=== PATIENT | female | born 1970 | race Caucasian/White ===

== ENCOUNTER 2020-05-08 16:52 | Outpatient (REF) | payer OTHER, SELFPAY | END 2020-05-08 16:53 | disposition home or self-care (01) | LOC: HO.LNP 16:52 | PROVIDERS: Visit Provider Hospitalist | DX: Z20.822 Contact with and (suspected) exposure to COVID-19 (principal); J01.90 Acute sinusitis, unspecified | CPT/HCPCS: U0003; U0005 ==

== ENCOUNTER 2022-11-27 11:07 | Emergency (ER) | payer OTHER, SELFPAY ==
[2022-11-27 11:32] VITALS: BP 159/95; PULSE 87; RESP 18; TEMP 36.6; O2SAT 98; BMI 35.5
--- NOTE | 2022-11-27 11:33 | ED_ITS ---
HPI - General Adult General Chief complaint: Upper Respiratory Symptoms Stated complaint: COVID+/Pinky numbness/body aches Time Seen by Provider: 11/27/22 12:05 Source: patient Mode of arrival: ambulatory Limitations: no limitations History of Present Illness HPI narrative: 52-year-old female with no medical history presents to the ER for evaluation of transient tingling and discoloration of her left pinky finger that occurred today when she was at work. She reports it came on when she was counting money. She had no pain but sensation the finger was sleep and her pinky was white. It lasted about 45 minutes and self resolved. She reports it occurred again later and she has some ongoing tingling in the pinky but color is back to normal. She denies any weakness. She reports history of numbness and tingling in her fingers and hands intermittently at night. No neck pain or injury. She also reports today she had some pain and numbness in her left foot as well. No weakness in the leg, speech difficulties. She was just diagnosed with COVID earlier this week. Symptoms have been mild. She reports bilateral eye burning and some redness to the left lower eye lid. She has had blurred vision worse than usual since her COVID diagnosis. No discharge from the eyes. She does not have an eye doctor. MD complaint: left pinky discoloration and numbness, left foot numbness, blurred vision Onset (ago): hour(s) Location: eyes, left, upper extremity and lower extremity Radiation: non-radiation Severity: moderate Quality: burning Pain Consistency: intermittent Relieving factors: none Exacerbating factors: none Associated symptoms: cough and malaise Treatments prior to arrival: none Related Data Previous Rx's Medication Instructions Recorded amoxicillin 875 mg-potassium 1 tab PO BID #20 tabs 05/08/20 clavulanate 125 mg tablet (Augmentin) prednisone 20 mg tablet 20 mg PO .COMPLEX #18 tabs 05/08/20 erythromycin 5 mg/gram (0.5 %) eye 0.5 inch ophthalmic (eye) TID #3.5 11/27/22 ointment grams Allergies Allergy/AdvReac Type Severity Reaction Status Date / Time No Known Allergies Allergy Verified 05/08/20 12:41 Review of Systems 2 Review of Systems: Yes all other systems are reviewed and are negative [facility] Social History Social History Advance Directives: No Physical Exam ED Vital Signs: Vital Signs - 24 hr 11/27/22 11:32 Temperature 97.8 F Pulse Rate 87 Respiratory Rate 18 Blood Pressure 159/95 H Pulse Oximetry 98 Oxygen Delivery Method Room Air BMI result Body Mass Index 35.5 Appearance: Alert. Oriented X3. No acute distress. Head: normocephalic, atraumatic. Eyes: Pupils equal, round and reactive to light. Left lower eyelid with erythema, visible pustule internally on the conjunctiva. bilateral scleral injection, mild. ENT: Pharynx normal. No tonsillar swelling or exudate. Neck: Normal inspection. Neck supple. CVS: Normal heart rate and rhythm. Pulses normal. Respiratory: No respiratory distress. Breath sounds normal. Skin: Skin warm and dry. Normal skin color. Normal skin turgor. No rashes. Extremities: No lower extremity edema. No joint swelling. Normal inspection of bilateral hands, no discoloration. Neuro/psych: Oriented X 3. No motor deficit. No sensory deficit. CN II-XII intact. Normal speech and cognition. Strength is equal and symmetrical throughout. Steady gait Course Course Course Narrative: This is an RME: Additional HPI, ROS, PE not included below will be deferred to primary provider. This is a [id number]-female, with no known medical problems, presenting to the emergency department with multiple complaints. Patient tested positive for COVID on Friday morning. She states that Friday she had a fever. Now having numbness and tingling down to her left pinky. She admits to having some mild discomfort in her chest. Her the reporting numbness and tingling down her left leg. She has had ongoing upper back pain for several months may attribute this to waking. She has been taking ibuprofen for symptoms which has provided some relief. Patient is nontoxic appearing, blood pressure mildly elevated 159/95, all other vital signs within normal limits. Patient afebrile. Plan: Labs, EKG, chest x-ray Medications Administered Discontinued Medications Generic Name Dose Route Start Last Admin Trade Name Freq PRN Reason Stop Dose Admin Fluorescein Sodium 1 strip 11/27/22 13:04 11/27/22 13:08 Fluorescein Sodium Strip EYE-BOTH 11/27/22 13:05 1 strip ONCE ONE Administration Tetracaine HCl 1 drop 10/11/23 13:04 11/27/22 13:08 Tetracaine Hcl/Pf 0.5% Oph Felisa 4 Ml Drops EYE-BOTH 11/27/22 13:05 1 drop ONCE ONE Administration Medical Decision Making Medical Decision Making [facility] Narrative: With recently diagnosed COVID-19 presents to the ER for evaluation discoloration and paresthesias of the left pinky as well as the left foot that started today. She also stool reporting eye pressure and discomfort when she touches her eyes. She has acute on chronic blurry vision. Her neuro exam is nonfocal, NIH is 0. Her vital signs are stable. Fluoroscene exam and IOP normal. She has a stye on the left lower lid. She reports intermittent hand/finger numbness chronically, question cervical radiculopathy. The left foot tingling is new with no strength or sensation deficits on examination. gait is normal. considered CT head/CTA head/neck but low clinical suspicion for LVO or acute CVA at this time. Her lab workup today was unremakable. TSH normal. At this time comfortable w/ discharge home with close outpatient follow up, instructed to come back to the ER if symptoms worsen. She expressed understanding. Stable for d/c home. Differential Diagnosis Differential Diagnoses: The differential diagnosis associated with the presentation includes raymaud's phenomenon, paresthesias, cervical radiculopathy, lumbar radiculopathy, metabolic derrangement, vitamin deficiency, less likely TIA or CVA Admission/Observation Consideration of admission/observation: Escalation of care including admission/observation considered Lab Data [facility] Lab Attestation statement: I reviewed the patient's lab results. normal CBC, no metabolic derrangement 11/27/22 11:58 11/27/22 11:58 Labs: Lab Results 11/27/22 Range/Units 11:58 WBC 7.2 (4.8-10.8) X10*3/uL RBC 5.05 (4.20-5.50) X10*6/uL Hgb 15.6 (12.0-16.0) g/dl Hct 45.6 (37.0-47.0) % MCV 90.3 (80.0-98.0) fL MCH 30.9 (27.0-33.0) pg MCHC 34.2 (31.0-35.0) g/dl RDW 11.9 (11.0-16.0) % Plt Count 210 (160-400) X10*3/uL MPV 9.9 (9.4-12.3) fL Immature Gran % (Auto) 0.1 (0.0-0.4) % Neut % (Auto) 73.0 (45-73) % Lymph % (Auto) 19.5 L (20-40) % [place] % (Auto) 6.7 (2-11) % Eos % (Auto) 0.4 (0-4) % Baso % (Auto) 0.3 (0-2) % Lymph # (Auto) 1.4 (1.2-4.9) X10*3/uL [place] # (Auto) 0.5 (0.1-1.2) X10*3/uL Eos # (Auto) 0.0 (0.0-0.4) X10*3/uL Baso # (Auto) 0.0 (0.0-0.2) X10*3/uL Abs Immat Gran (auto) 0.01 (0.00-0.03) X10*3/uL Absolute Neuts (auto) 5.3 (2.0-8.3) x10*3/uL Absolute Nucleated RBC 0.000 (0.0-0.012) X10*3/uL Nucleated RBC % (auto) 0.0 (0.0-0.2) /100WBC Sodium 142 (135-145) mmol/L Potassium 4.5 (3.3-5.1) mmol/L Chloride 106 (96-108) mmol/L Carbon Dioxide 22 (22-29) mmol/L Anion Gap 19 (12-20) BUN 12 (9-16) mg/dL Creatinine 0.72 (0.5-1.4) mg/dL Estim Creat Clear Calc 110.2 Estimated GFR > 60 Random Glucose 91 (60-115) mg/dL Calcium 9.8 (8.4-10.2) mg/dL Total Bilirubin 0.3 (0.0-1.0) mg/dL Direct Bilirubin 0.1 (0.0-0.5) mg/dL AST 21 (5-31) U/L ALT 23 (0-31) U/L Alkaline Phosphatase 70 (39-117) U/L Troponin I High Sens < 2.7 (<3.5-17.0) ng/L Total Protein 7.6 (6.5-8.0) g/dL Albumin 4.3 (3.5-5.0) g/dL Independent Interpretation I performed an independent interpretation of an: EKG Interpretation: EKG with normal sinus rhythm, ventricular rate 79 beats per minute, normal PA interval, normal QTC, no ST segment elevations or depressions. External Record Review External record reviewed: Office record Tests considered The following testing was considered but not selected: considered CT head or MRI, NIH 0, nonfocal neuro exam Prescription Management I considered prescription management with: Antiviral and Antibiotic Critical Care Time Critical Care Time Critical Care Time: No Discharge Plan Discharge Clinical Impression: Internal hordeolum of left eye, COVID-19, Paresthesias Patient Disposition: Home, Self-Care Instructions: Covid-19 Viral Syndrome and Novel Coronavirus (ED) Hey/Ath, Stye (ED), Paresthesia (ED) Additional Instructions: Your lab workup today was reassuring. Your examination was normal Use warm compresses to your left eye several times per day and use the antibiotic ointment x1 week Rest and drink plenty of fluids Recommend following up with Ophthalmology for further evaluation once you are recovered If you develop new or worsening symptoms call 911 or come back to the ER for further evaluation. Prescriptions: New erythromycin 5 mg/gram (0.5 %) ointment 0.5 inch ophthalmic (eye) TID Qty: 3.5 0RF No Action prednisone 20 mg tablet 20 mg PO .COMPLEX Qty: 18 0RF Rx Instructions: 20 mg PO 3 p.o. daily for 3 days followed by 2 p.o. daily for 3 days followed by 1 p.o. daily for 3 days; amoxicillin-pot clavulanate [Augmentin] 875-125 mg tablet 1 tab PO BID Qty: 20 0RF Referrals: Dilip Hamilton [Physician] - Adia Olvieros MD [Primary Care Provider] - Discharge Date/Time: 11/27/22 15:19
[2022-11-27 12:19] LABS: Alanine Aminotransferase 23 U/L (0-31); Albumin Level 4.3 g/dL (3.5-5.0); Alkaline Phosphatase 70 U/L (39-117); Anion Gap 19 (12-20); Aspartate Amino Transferase 21 U/L (5-31); Bilirubin Direct 0.1 mg/dL (0.0-0.5); Bilirubin Total 0.3 mg/dL (0.0-1.0); Blood Urea Nitrogen 12 mg/dL (9-16); Calcium 9.8 mg/dL (8.4-10.2); Carbon Dioxide 22 mmol/L (22-29); Chloride 106 mmol/L (96-108); Creatinine Clr Calc Pharmacy 110.2; Estimated Glomerular Filt Rate > 60; Glucose Random 91 mg/dL (60-115); Potassium 4.5 mmol/L (3.3-5.1); Sodium 142 mmol/L (135-145); Total Protein 7.6 g/dL (6.5-8.0)
--- NOTE | 2022-11-27 13:09 | PC.NURSE ---
tetracaine, bio gokul at bedside for provider admin
== END 2022-11-27 15:19 | disposition home or self-care (01) ==
PROVIDERS: Physician Assistant Medical; Emergency Provider Emergency Medicine Emergency Medical Services; PCP Internal Medicine
DX: U07.1 COVID-19 (principal); H00.025 Hordeolum internum left lower eyelid; H53.8 Other visual disturbances; R07.89 Other chest pain; M54.50 Low back pain, unspecified; M79.10 Myalgia, unspecified site; R05.9 Cough, unspecified; R20.0 Anesthesia of skin; Z79.899 Other long term (current) drug therapy
CPT/HCPCS: 36415; 80048; 80076; 84484; 85025; 93005; 99283

== ENCOUNTER 2025-01-27 07:57 | Outpatient (REF) | payer OTHER, SELFPAY ==
--- NOTE | ~2025-01-27 | XR_ITS ---
EXAMINATION: XR SACRUM AND COCCYX CLINICAL INFORMATION: M53.3 - Sacrococcygeal disorders, not elsewhere classified. 54-year-old female complaining of tailbone pain radiating down buttocks. COMPARISON: None available. TECHNIQUE: 2 views of the sacrum and 2 views of the coccyx were obtained. FINDINGS: There is S-shaped deformity of the most distal sacrum and coccyx, seen on the lateral projection, which could represent an age-indeterminate fracture. Unfortunately, radiographs of this region are of limited value due to extreme anatomic variability of the coccyx. The remainder of the sacrum appears intact. The SI joints demonstrate mild sclerosis on the iliac aspects bilaterally, without evidence of erosive arthropathy or significant degenerative arthropathy. This is likely secondary to previous childbirth. There are mild degenerative changes in the imaged lumbar spine. The soft tissues are normal in appearance. XR/XR sacrum coccyx min 2V IMPRESSION: 1. S-shaped deformity of the most distal sacrum and coccyx, possibly representing age-indeterminate fracture versus normal anatomical variation. 2. No additional abnormalities identified. Electronically signed by: Brennan Toledo MD 01/27/2025 09:46 AM [facility]
== END 2025-01-27 07:58 | disposition home or self-care (01) ==
LOC: HO.HMGCX 07:57
PROVIDERS: PCP Internal Medicine; Visit Provider Nurse Practitioner Family
DX: M53.3 Sacrococcygeal disorders, not elsewhere classified (principal); K59.00 Constipation, unspecified
CPT/HCPCS: 72220; 99212

== ENCOUNTER 2025-01-27 07:57 | Outpatient (AMB) | payer OTHER, SELFPAY ==
[2025-01-27 07:58] VITALS: BP 154/72; PULSE 58; O2SAT 98
--- NOTE | 2025-01-27 07:58 | AM.OFFWIN_ITS ---
Intake Vital Signs 01/27/25 07:58 Height 5 ft 6 in BP 154/72 H Blood Pressure Location Rt brachial Position Sitting Pulse 58 Pulse Source Pulse Oximeter Pulse Oximetry (%) 98 Oxygen Delivery Method Room Air Intake Visit Reasons: EP-coccyx Intake Note: Patient presents c/o coccyx pain that radiates into right buttock and right hip/groin x10 days. Patient unsure what happened. Patient Tobacco Use Status: Current everyday Tobacco user Allergies No Known Allergies Allergy (Verified 01/27/25 08:02) Medication List - Last Reconciled 01/27/25 by Ronel De Leon NP acetaminophen 1,000 mg (2 x 500 mg) PO Q6H bisacodyl (Dulcolax (bisacodyl)) 10 mg (2 x 5 mg) PO DAILY cyclobenzaprine 10 mg PO BEDTIME polyethylene glycol 3350 (Miralax) 17 grams PO BID tirzepatide (weight loss) (Zepbound) 5 mg subcut QWEEK Do you need a note to return to daycare/school/sports/work: No HPI HPI Comments History of Present Illness Details 54-year-old female presents to the walk- in clinic with tailbone (coccyx) pain x10 days. Describes the pain as sharp with intermittent spasms, radiating into the buttocks. Pain is aggravated by walking, bending, and sitting. Minimal relief with Ibuprofen 400?800 mg. Denies any known trauma or injury. Reports constipation and painful bowel movements since starting Zepbound ~2 weeks ago for weight loss. Denies numbness, tingling, saddle anesthesia, lower extremity weakness, urinary retention, or bowel incontinence. [facility] Medical History (Updated 01/27/25 @ 08:17 by Ronel De Leon NP) Constipation Coccydynia Social History Patient Tobacco Use Status: Current everyday Tobacco user Review of Systems Const All systems reviewed & are unremarkable except as noted in HPI and below Physical Exam Vital Signs: Last Vital Signs Pulse 58 01/27/25 07:58 BP 154/72 H 01/27/25 07:58 Pulse Ox 98 01/27/25 07:58 Oxygen Delivery Method Room Air 01/27/25 07:58 Const General: no acute distress Nutritional Appearance: obese Orientation/consciousness: patient oriented x3 GI Inspection: Yes distended and Yes obesity Palpation (GI): Soft to palpation, not firm, no guarding and not rigid Auscultation: normal bowel sounds Back/Spine/Pelvis Other: Back: No visible swelling or ecchymosis. Tenderness to palpation over coccyx. No lumbar spine tenderness. Neuro General: patient oriented x3, gait normal and moves all extremities Assessment & Plan Assessment & Plan (1) Coccydynia: Code(s): M53.3 - Sacrococcygeal disorders, not elsewhere classified Plan: Coccydynia ? likely secondary to prolonged pressure and/or constipation-related straining; no red-flag neurological symptoms. Constipation, medication-associated (likely due to Zepbound). Musculoskeletal pain/spasm contributing to discomfort. NSAIDs and Acetaminophen for pain relief. Ordered short course of muscle relaxant for spasms relief. Topical lidocaine or diclofenac gel for local pain relief. Use coccyx cushion or donut pillow when sitting. Warm compresses to area 20 min TID. Avoid prolonged sitting and hard surfaces. Gentle stretching. Increase fluid intake, fiber supplementation. Start Miralax daily until stool soft and regular. Ordered Dulcolax. Ordered Back/Pelvis Xray. (2) Constipation: Code(s): K59.00 - Constipation, unspecified Plan: Coccydynia ? likely secondary to prolonged pressure and/or constipation-related straining; no red-flag neurological symptoms. Constipation, medication-associated (likely due to Zepbound). Musculoskeletal pain/spasm contributing to discomfort. NSAIDs and Acetaminophen for pain relief. Ordered short course of muscle relaxant for spasms relief. Topical lidocaine or diclofenac gel for local pain relief. Use coccyx cushion or donut pillow when sitting. Warm compresses to area 20 min TID. Avoid prolonged sitting and hard surfaces. Gentle stretching. Increase fluid intake, fiber supplementation. Start Miralax daily until stool soft and regular. Ordered Dulcolax. Ordered Back/Pelvis Xray. Orders: Orders XR sacrum coccyx min 2V Today M53.3 - Sacrococcygeal disorders, not elsewhere classified Medications: New cyclobenzaprine 10 mg PO BEDTIME 14 tabs 0RF M53.3 - Sacrococcygeal disorders, not elsewhere classified polyethylene glycol 3350 (Miralax) 17 grams PO BID 238 grams 0RF K59.00 - Constipation, unspecified acetaminophen 1,000 mg (2 x 500 mg) PO Q6H 30 caps 0RF pain M53.3 - Sacrococcygeal disorders, not elsewhere classified bisacodyl (Dulcolax (bisacodyl)) 10 mg (2 x 5 mg) PO DAILY 20 tabs 0RF K59.00 - Constipation, unspecified Coding Level of Care Code Est Pt Level 4 (60343) Diagnoses Coccydynia M53.3 Constipation K59.00 Time Spent (min) 20
--- OUTSIDE RECORDS SUMMARY | 2025-01-27 08:05 | XMS_ITS | Encounter Summary ---
Author Organization [facility] Address [address] [place] [address] Care Team Providers Care Leather Finisher Name Role Phone Quentin Jansen MD Primary Care Provider [phone] Reason for Visit * Reason Onset Date Comments Weight Check 01/25/2025 231 lbs Encounter Details Date Type Department Care Team (Late st Contact Info) Description 01/25/2025 Telephone Bariatric Surgery - [address] [place] [address] Navya King PA [address] [place] [address] Social History Tobacco Use Types Packs/Day Years Used Date Smoking Tobacco: Every Day Cigarettes Smokeless Tobacco: Never Alcohol Use Standard Drinks/Week Comments Yes 0 (1 standard drink = 0.6 oz pur e alcohol) Housing Instability Answer Date Recorde d Are you worried that in the next 2 months you may not have stable housing? No 02/16/2024 Food Access & Nutrition Answer Date Rec orded Do you have access to a vari ety of food including fruits and vegetables? Yes 02/16/2024 Health Literacy Answer Date Recorded How often do you need to hav e someone help you when you read instructions, pamphlets, or other written material from your doctor or pharmacy? Never 02/16/2024 Caregiver: How often do you need to have someone help you when you read instructions, pamphlets, or other written material from your doctor or pharmacy? Not on file 02/16/2024 Financial Risk Answer Date Recorded How hard is it for you to pa y for the very basics like food, housing, medical care, and air conditioning / heating? Somewhat hard 02/16/2024 Transportation Answer Date Recorded Has the lack of transportati on kept you from meetings, work, or from getting things needed for daily living? No Has the lack of transportati on kept you from medical appointments or from getting medications? No 02/16/2024 Food Risk Answer Date Recorded Within the past 12 months we worried whether our food would run out before we got money to buy more. Never true 02/16/2024 Within the past 12 months th e food we bought just didn't last and we didn't have money to get more. Never true 02/16/2024 Dependent Care Answer Date Recorded Do you need help finding or paying for care for your loved ones. For example, attendant child activity or elderly care for an older adult? No 02/16/2024 Education Answer Date Recorded Do you think completing more education or training, like finishing a GED, going to college, or learning a trade, would be helpful for you? N/A 02/16/2024 Employment and Income Answer Date Recor ded During the last four weeks, have you been actively looking for work? No 02/16/2024 Living Situation Answer Date Recorded What is your living situation? Unrecognized valu e 02/16/2024 Comments Unknown Sex and Gender Information Value Date Recorded Sex Assigned at Not on file Legal Sex Female 3:03 AM EST Gender Identity Not on file Sexual Orientation Not on file documented as of this encounter Progress Notes * Anamaria Raymond - 01/25/2025 10:53 AM EST Weight check 231 lbs documented in this encounter Plan of Treatment Upcoming Encounters Date Type Department Care Team (Late st Contact Info) Description 02/09/2025 3:00 PM EST Office Visit Adult Medicine [address] [phone] Adia lOiveros MD [address] [place] [address] 04/12/2025 3:15 PM EST Office Visit Bariatric Surgery - [address] [phone] Navya King PA [address] [place] [address] documented as of this encounter Visit Diagnoses Not on filedocumented in this encounter Additional Health Concerns Assessment Noted Time PHQ-9 Depression Total Score: 1 02/16/20 24 7:57 PM EST documented as of this encounter Care Teams Leather Finisher Relationship Specialty Start Date End Date Quentin Jansen MD [address] [place] [address] Dr [address] [place], [place] PCP - General Internal Medicine 11/09/24 documented as of this encounter
--- OUTSIDE RECORDS SUMMARY | 2025-01-27 08:05 | XMS_ITS | Clinical Summary ---
Author Organization [facility] [address] [place] [address] [place] [address] [place] [address] Phone Care Team Providers Care Actuarial Science Professor Name Role Phone Quentin Jansen MD Primary Care Provider Allergies No known active allergies Medications tirzepatide, weight loss, (Zepbound) 5 mg/0.5 mL injection Inject 0.5 mL (5 mg total) under the skin every 7 (seven) days. 2 mL 12/27/2024 Active Problems Problem Noted Date Diagnosed Date Obesity, morbid 07/30/2024 Raynaud's phenomenon without gangrene 07/30/2024 HTN (hypertension) 01/06/2024 Overview (01/06/2024): Has not been on medications since 2013. Resolved with weight loss. Hyperlipidemia 01/06/2024 Uterine fibroid 11/18/2017 Overview (01/06/2024): S/p hysterectomy 11/2017 Obesity (BMI 30-39.9) 08/19/2017 Encounters Date Type Department Care Team Description 01/25/2025 Telephone Bariatric Surgery - [place] [address] [address] Navya King PA 12/27/2024 Telephone Bariatric Surgery [facility] [address] [address] Navya King PA 12/02/2024 Telephone Bariatric Surgery [facility] [address] [address] Navya King PA 11/09/2024 1:30 PM EDT Office Visit Bariatric Surgery - [address] [place] [address] Navya King PA Hypertension, unspecified type (Primary Dx); BMI 35.0-35.9,adult; Hyperlipidemia, unspecified hyperlipidemia type from Last 3 Months Immunizations Immunization Administration Dates Next Due Influenza trivalent, with pr eservative (Fluzone; Afluria) 6mo and older 01/17/2021 Tdap Tetanus diptheria acell ular pertussis (Boostrix; Adacel) 7yo and older 01/29/2012 Surgical History Surgery Date Site/Laterality Comments PARTIAL HYSTERECTOMY PROCEDURE: [place] SUPRACERVICAL ABDL HYSTER W/WO RMVL TUBE OVARY; COMMENT: abdominal 11/2017 with bilateral salpingectomy Medical History Medical History Date Comments HTN (hypertension) DX:HTN (hyper tension) Hyperlipidemia DX:Hyperlipidemi a Obesity (BMI 30-39.9) 08/19/2017 DX:Obesity (BMI 30-39.9) Tobacco use 08/19/2017 DX:Tobacco use Uterine fibroid 11/18/2017 DX:Uterine fibro id; COMMENT: S/p hysterectomy 11/2017 Family History Medical History Relation Name Comments Cataracts Father Hyperlipidemia Father Hypertension Father Heart attack Maternal Grandfather was in his 70s Stroke Maternal Grandmother in her late 60s Hyperlipidemia Mother Hypertension Mother Heart attack Paternal Grandfather was in his 60s Blindness Neg Hx Breast cancer Neg Hx Glaucoma Neg Hx Macular degeneration Neg Hx Ovarian cancer Neg Hx Strabismus Neg Hx Uterine cancer Neg Hx Relation Name Status Comments Brother Alive Father Alive Maternal Grandfather Maternal Grandmother Mother Alive Paternal Grandfather Paternal Grandmother Alive Social History Tobacco Use Types Packs/Day Years [...] care for your loved ones. For example, children's zoo caretaker or elderly care for an older adult? [...] on file Sexual Orientation Not on file Last Filed Vital Signs Vital Sign Reading Time Taken Comments Blood Pressure 150/82 11/09/2024 1:27 PM EDT Pulse 83 11/09/2024 1:27 PM EDT Temperature 36.4 C (97.6 F) 11/09/2024 1:27 PM EDT Respiratory Rate 16 07/30/2024 2:11 PM EDT Oxygen Saturation 97% 07/30/2024 2:11 PM EDT Inhaled Oxygen Concentration - - Weight 111 kg (245 lb) 11/09/2024 1:27 PM EDT Height 162.6 cm (5' 4 ) 11/09/2024 1:27 PM EDT Body Mass Index 42.05 11/09/2024 1:27 PM EDT Plan of Treatment Upcoming Encounters Date Type Department Care Team (Late st Contact Info) Description 02/09/2025 3:00 PM EST Office Visit Adult Medicine [facility] [address] [place] [address] Adia Oliveros MD [address] [place] [address] 04/12/2025 3:15 PM EST Office Visit Bariatric Surgery - [address] [place] [address] Navya King PA [address] [place] [address] Health Maintenance Due Date Last Done Comments Colorectal Cancer Screening: Colonoscopy 1971 Hepatitis B Vaccines (1 of 3 - 19+ 3-dose series) 08/24/1990 Pneumococcal Vaccine: 50+ Years (1 of 2 - PCV) 08/24/1990 Breast Cancer Screening 08/22/2019 08/21/2017 Cervical Cancer Screening: P ap Smear 09/30/2020 09/30/2017, 09/30/2017 RSV Immunization Adult Patients (1 - Risk 50-74 years 1-dose series) 08/24/2021 Zoster Vaccines (1 of 2) 08/24/2021 HIV Screening 01/20/2022 DTaP,Tdap,and Td Vaccines (2 - Td or Tdap) 01/28/2022 01/29/2012 Depression Screening 02/18/2024 02/16/2024 COVID-19 Vaccine (4 - 2024-2 6 season) 2024 01/17/2021, 06/10/2020, 05/19/2020 Influenza Vaccine (#1) 2024 01/17/2021 Social Influencers of Health Screening 02/15/2025 02/16/2024 Hypertension/CHF/CAD Annual BMP Blood Test 07/26/2025 07/26/2024, 07/16/2022 Cholesterol Screening (Lipid Panel) 07/26/2029 07/26/2024, 07/16/2022 Hepatitis C Screening Completed 07/16/2022 HIB Vaccines Aged Out No longer eligi ble based on patient's age to complete this topic HPV Vaccines Aged Out No longer eligi ble based on patient's age to complete this topic Hepatitis A Vaccines Aged Out No long er eligible based on patient's age to complete this topic IPV Vaccines Aged Out No longer eligi ble based on patient's age to complete this topic MMR Vaccines Aged Out No longer eligi ble based on patient's age to complete this topic Meningococcal ACWY Vaccine Aged Out N o longer eligible based on patient's age to complete this topic Meningococcal B Vaccine Aged Out No l onger eligible based on patient's age to complete this topic RSV Immunization Patients Under 20 months Aged Out No longer eligible b ased on patient's age to complete this topic Varicella Vaccines Aged Out No longer eligible based on patient's age to complete this topic Procedures Procedure Name Priority Date/Time Associated Diagnosis Comments COMPREHENSIVE METABOLIC PANEL Routine 07/26/2024 11:35 AM EDT Raynaud's phenomenon without gangrene LIPID PANEL WITH REFLEX TO DIRECT LDL Routine 07/26/2024 11:35 AM EDT Raynaud's phenomenon without gangrene HM HEPATITIS C SCREENING Routine 07/16/2022 PAP SMEAR Routine 09/30/2017 SCR MAMMO BI INCL CAD Routine 08/21/2017 1:38 PM EDT Encounter for screening mammogram for malignant neoplasm of breast from Last 3 Months or Most Recently Relevant to Health Maintenance Results * (ABNORMAL) Lipid panel with reflex to direct LDL (07/26/2024 11:35 AM EDT) Cholesterol 252(H) 0 - 200 mg/dL LAB CHEMISTRY METHOD 07/26/2024 5:21 PM EDT [facility] Triglycerides 177(H) 0 - 150 mg/dL LAB CHEMISTRY METHOD 07/26/2024 5:21 PM EDT [facility] HDL 56 >=40 mg/dL LAB CHEMISTRY METHOD 07/26/2024 5:21 PM EDT [facility] LDL Calculated 161(H) 0 - 100 mg/dL LAB CHEMISTRY METHOD 07/26/2024 5:21 PM EDT [facility] VLDL Cholesterol Agusto 35.4 mg/dL LAB CHEMISTRY METHOD 07/26/2024 5:21 PM T [facility] Non HDL Chol. (LDL+VLDL) 196(H) <145 mg/dL LAB CHEMISTRY METHOD 07/26/2024 5:21 PM [facility] Chol/HDL Ratio 4.5(H) 0.0 - 4.4 LAB CHEMISTRY METHOD 07/26/2024 5:21 PM T [facility] Blood Venous blood specimen / Unknown Venipuncture / Unknown 07/26/2024 11:35 AM EDT 07/26/2024 11:35 AM EDT us Adia Oliveros MD LAB BLOOD ORDERABLES Final Resul t [facility] [address] [place] [address], * Comprehensive metabolic panel (07/26/2024 11:35 AM EDT) Sodium 140 133 - 145 mmol/L LAB CHEMISTRY METHOD 07/26/2024 5:21 PM T [facility] Potassium 4.7 3.5 - 5.5 mmol/L LAB CHEMISTRY METHOD 07/26/2024 5:21 PM [facility] Chloride 108 96 - 110 mmol/L LAB CHEMISTRY METHOD 07/26/2024 5:21 PM [facility] CO2 27 21 - 32 mmol/L LAB CHEMISTRY METHOD 07/26/2024 5:21 PM [facility] Anion Gap 5 3 - 11 LAB CHEMISTRY METHOD 07/26/2024 5:21 PM [facility] Glucose 97 70 - 100 mg/dL LAB CHEMISTRY METHOD 07/26/2024 5:21 PM [facility] BUN 13 5 - 25 mg/dL LAB CHEMISTRY METHOD 07/26/2024 5:21 PM [facility] Creatinine 0.74 0.50 - 1.10 mg/dL LAB CHEMISTRY METHOD 07/26/2024 5:21 PM [facility] eGFR 97 >=60 mL/min/1. 73m2 LAB CHEMISTRY METHOD 07/26/2024 5:21 PM [facility] Comment:Calculation based on the Chronic Kidney Disease Epidemiology Collaboration (CKD-EPI) equation refit without adjustment for race. BUN/Creatinine Ratio 17.6 LAB CHEMISTRY METHOD 07/26/2024 5:21 PM [facility] Calcium 8.9 8.5 - 10.5 mg/dL LAB CHEMISTRY METHOD 07/26/2024 5:21 PM [facility] AST (SGOT) 19 10 - 42 unit/L LAB CHEMISTRY METHOD 07/26/2024 5:21 PM [facility] ALT (SGPT) 36 10 - 60 unit/L LAB CHEMISTRY METHOD 07/26/2024 5:21 PM [facility] Alkaline Phosphatase 90 42 - 121 unit/L LAB CHEMISTRY METHOD 07/26/2024 5:21 PM [facility] Total Protein 6.8 6.0 - 8.0 g/dL LAB CHEMISTRY METHOD 07/26/2024 5:21 PM [facility] Albumin 3.7 3.2 - 5.0 g/dL LAB CHEMISTRY METHOD 07/26/2024 5:21 PM EDT [facility] Total Bilirubin 0.6 0.0 - 1.4 mg/dL LAB CHEMISTRY METHOD 07/26/2024 5:21 PM EDT [facility] Blood Venous blood specimen / Unknown Venipuncture / Unknown 07/26/2024 11:35 AM EDT 07/26/2024 11:35 AM EDT Adia Oliveros MD LAB BLOOD ORDERABLES Final Resul t [facility] [address] [place] [address], [place] [phone] * Hepatitis C Screening (07/16/2022) Hepatitis C Screening Abstracted Historical Provider HEALTH MAINTENANCE Final Result * Pap smear (09/30/2017) 09/30/2017 Narrative HISTORICAL TESTING LAB RESULTING AGENCY - 10/06/2017 4:26 PM EDT [id number] THINPREP PAP, IMAGED: ATYPICAL SQUAMOUS CELLS OF UNDETERMINED SIGNIFICANCE (ASCUS) . RESULT OF APTIMA HIGH RISK HPV ASSAY: NEGATIVE (SEROTYPES 16,18,31,33,35,39,45,51,52,56,58,59,66,68) CHIN RAZA(ASCP) (CASE SCREENED 10 03 2017) DESTIN GOODRICH M.D., PATHOLOGIST (CASE ELECTRONICALLY SIGNED 10 05 2017) ADEQUACY: SATISFACTORY. ENDOCERVICAL/TRANSFORMATION ZONE COMPONENT PRESENT. SOURCE: THINPREP PAP HPV ANY DX: REFLEX 16 AND 18, CERVICAL, IMAGED: CLINICAL INFORMATION: HPV ANY DIAGNOSIS. Z12.4, Z01.419, PAP HX: NEGATIVE 09/02/2012 Chantal Aburto DO LAB CYTOLOGY ORDERABLES Final Result HISTORICAL TESTING LAB RESULTING AGENCY * SCR MAMMO BI INCL CAD (08/21/2017 1:38 PM EDT) Anatomical Region Laterality Modality Radiographic Karie ging 07/13/2013 10:1 9 AM EDT Narrative 08/22/2017 8:30 AM EDT This is a summary report. The complete report is available in the patient's medical record. If you cannot access the medical record, please contact the sending organization for a detailed fax or copy. Full field digital screening mammography, reviewed with CAD and compared to previous. The breasts are composed of fatty and fibroglandular tissue. No suspicious mass, architectural distortion or suspicious calcifications are identified. IMPRESSION: : No mammographic evidence of malignancy. BIRADS 1-Negative; N. 5 year breast cancer risk assessment 0.8 % Lifetime breast cancer risk assessment 9.7 % Breast cancer risk category Low (<15%) Procedure Note Angie Colby, DO - 02/05/2022 This is a summary report. The complete report is available in thepatient's medical record. If you cannot access the medical record, pleasecontact the sending organization for a detailed fax or copy. Full field digital screening mammography, reviewed with CAD and comparedto previous. The breasts are composed of fatty and fibroglandular tissue.No suspicious mass, architectural distortion or suspicious calcificationsare identified. IMPRESSION: : No mammographic evidence of malignancy. BIRADS 1-Negative; N. 5 year breast cancer risk assessment 0.8 % Lifetime breast cancer risk assessment 9.7 % Breast cancer risk category Low (<15%) Lina Younger CN IMG XR PROCEDURES Final Resul t from Last 3 Months or Most Recently Relevant to Health Maintenance Insurance [employer] Care Teams Actuarial Science Professor Relationship Specialty Start Date End Date Quentin Jansen MD [address] [place] [address] [address] ELIJAH Freire PCP - General Internal Medicine 11/09/24
== END 2025-01-27 08:39 | disposition home or self-care (01) ==
PROVIDERS: PCP Internal Medicine; Visit Provider Nurse Practitioner Family
DX: M53.3 Sacrococcygeal disorders, not elsewhere classified (principal); K59.00 Constipation, unspecified

== ENCOUNTER → 2025-01-27 08:23 | Outpatient (BNV) | payer OTHER, SELFPAY | PROVIDERS: PCP Internal Medicine; Visit Provider Radiology Diagnostic Radiology | DX: M53.3 Sacrococcygeal disorders, not elsewhere classified (principal) | CPT/HCPCS: 72220 ==